=== PATIENT | male | born 1955 | race African-American/Black ===

== ENCOUNTER 2019-09-09 10:58 | Emergency (ER) | payer OTHER ==
[~2019-09-09] VITALS: Ht 175.3 cm; Wt 73.9 kg
[~2019-09-09 10:58] MED LIST: AZOR 10-20 MG1 EACH; BP MED UNKNOWN; DARVOCET-N 1001 EAC1 PO; NORCO 5-325 TA1 EACH PO; NORFLEX100 MG PO
[2019-09-09 11:00] VITALS: BP 143/92
[2019-09-09] MEDS ORDERED: ASA81BEC PO (11:06)
== END 2019-09-09 12:05 | disposition home or self-care (01) ==
LOC: ER 10:58
DX: S01.81XA Laceration without foreign body of other part of head, initial encounter (principal); I10 Essential (primary) hypertension; F17.210 Nicotine dependence, cigarettes, uncomplicated; W22.8XXA Striking against or struck by other objects, initial encounter; Y93.89 Activity, other specified; Y92.89 Other specified places as the place of occurrence of the external cause; Y99.8 Other external cause status

== ENCOUNTER → 2020-09-05 | Outpatient (CLI) | payer OTHER ==
[~2020-09-05] MED LIST changes: +ASA81BEC PO
== END ==
LOC: SJCVCIMAG 09-01 10:23
PROVIDERS: ATTEND Podiatrist Foot & Ankle Surgery
DX: I73.9 Peripheral vascular disease, unspecified (principal); M79.661 Pain in right lower leg; L81.9 Disorder of pigmentation, unspecified